=== PATIENT | female | born 1980 | race Caucasian/White ===

== ENCOUNTER 2016-04-10 06:55 | Day surgery (SDC) | payer BC ==
--- NOTE | ~2016-04-10 | EGD ---
EGD REPORT [facility] [address] [place] [address] NAME: BONITA ROBERTSON : [birth year] STATUS : REG [facility]#: [id number] AGE: 36 ADM/REG DATE : 04/10/16 MR#: [id number] REPORT SERV DATE: 04/10/16 DICTATED BY: BRENDAN BUTTERFIELD DATE: 04/10/16 REPORT STATUS : Draft TRANSCRIBED BY: [facility] DATE: 04/10/16 Endoscopy Center Patient Name: Bonita Robertson Date of : 1980 Attending MD: BRENDAN BUTTERFIELD MD Procedure Date No Time: 04/10/2016 Procedure: Upper GI endoscopy Indications: Heartburn, Suspected esophageal reflux, Nausea Referring MD: DAMIAN VÁZQUEZ Medicines: as per anesthesia Complications: No immediate complications. Procedure: Pre-Anesthesia Assessment: - ASA Grade Assessment: II - A patient with mild systemic disease. After obtaining informed consent, the endoscope was passed under direct vision. Throughout the procedure, the patient's blood pressure, pulse, and oxygen saturations were monitored continuously. The GIF H190 [id number] was introduced through the mouth, and advanced to the third part of duodenum. The upper GI endoscopy was accomplished without difficulty. The patient tolerated the procedure well. Findings: The examined esophagus was normal. A few sessile polyps were found in the gastric body. Biopsies were taken with a cold forceps for histology. The cardia and gastric fundus were normal on retroflexion. The examined duodenum was normal. Impression: - Normal esophagus. - A few gastric polyps. Biopsied. - Normal examined duodenum. Recommendation: - Await pathology results. - Follow an antireflux regimen. - Continue present medications. Procedure Code(s): --- Professional --- 16386, Esophagogastroduodenoscopy, flexible, transoral; with biopsy, single or multiple Diagnosis Code(s): --- Professional --- K31.7, Polyp of stomach and duodenum R12, Heartburn EGD REPORT [facility] [address] [place] [address]. [id number] NAME: BONITA ROBERTSON : [birth year] STATUS : REG [facility] [place] PAT#: [id number] AGE: 36 ADM/REG DATE : 04/10/16 MR#: [id number] REPORT SERV DATE: 04/10/16 DICTATED BY: BRENDAN BUTTERFIELD. DATE: 04/10/16 REPORT STATUS : Draft TRANSCRIBED BY: [id number] DATE: 04/10/16 R11.0, Nausea CPT copyright 2013 [employer]. All rights reserved. The codes documented in this report are preliminary and upon enrollment advisor review may be revised to meet current compliance requirements. BRENDAN BUTTERFIELD MD 04/10/2016 9:03 AM This report has been signed electronically. Number of Addenda: 0 Note Initiated On: 04/10/2016 8:44 AM Scope Withdrawal Time 0 hours 0 minutes 0 seconds [address] [place] [address]
--- NOTE | ~2016-04-10 | EGD ---
EGD REPORT [facility] [address] [place] [address] NAME: BONITA ROBERTSON : [birth year] STATUS : REG [facility]#: [id number] AGE: 36 ADM/REG DATE : 04/10/16 MR#: [id number] REPORT SERV DATE: 04/10/16 DICTATED BY: BRENDAN BUTTERFIELD DATE: 04/10/16 REPORT STATUS : Draft TRANSCRIBED BY: [employer] DATE: 04/10/16 Endoscopy Center Patient Name: Bonita Robertson Date of : 1980 Attending MD: BRENDAN BUTTERFIELD MD Procedure Date No Time: 04/10/2016 Procedure: Colonoscopy Indications: Personal history of ulcerative colitis Referring MD: DAMIAN VÁZQUEZ Medicines: as per anesthesia Complications: No immediate complications. Procedure: Pre-Anesthesia Assessment: - ASA Grade Assessment: II - A patient with mild systemic disease. After I obtained informed consent, the scope was passed under direct vision. Throughout the procedure, the patient's blood pressure, pulse, and oxygen saturations were monitored continuously. The PCF [id number] was introduced through the anus and advanced to the cecum, identified by appendiceal orifice and ileocecal valve. The colonoscopy was performed without difficulty. The patient tolerated the procedure well. The quality of the bowel preparation was adequate to identify polyps. Findings: The perianal and digital rectal examinations were normal. no active colitis Four biopsies were obtained in the rectum, in the sigmoid colon, in the descending colon, in the proximal transverse colon, in the distal transverse colon, in the ascending colon and in the cecum with cold forceps for histology. Impression: - Four biopsies were obtained in the rectum, in the sigmoid colon, in the descending colon, in the proximal transverse colon, in the distal transverse colon, in the ascending colon and in the cecum. Recommendation: - Await pathology results. - Repeat colonoscopy for surveillance based on pathology results. Procedure Code(s): --- Professional --- 05570, Colonoscopy, flexible, proximal to splenic flexure; with biopsy, single or multiple EGD REPORT [facility] [address] [place] [address] NAME: BONITA ROBERTSON : [birth year] STATUS : REG [facility]#: [id number] AGE: 36 ADM/REG DATE : 04/10/16 MR#: [id number] REPORT SERV DATE: 04/10/16 DICTATED BY: BRENDAN BUTTERFIELD. DATE: 04/10/16 REPORT STATUS : Draft TRANSCRIBED BY: [employer] DATE: 04/10/16 Diagnosis Code(s): --- Professional --- Z87.19, Personal history of other diseases of the digestive system CPT copyright 2013 [employer]. All rights reserved. The codes documented in this report are preliminary and upon tool distributor review may be revised to meet current compliance requirements. BRENDAN BUTTERFIELD MD 04/10/2016 9:29 AM This report has been signed electronically. Number of Addenda: 0 Note Initiated On: 04/10/2016 8:42 AM Scope Withdrawal Time 0 hours 13 minutes 2 seconds [id number] [place] [id number]
[~2016-04-10 06:55] MED LIST: ADVIL PO; NEXIUM40 PO
== END 2016-04-10 23:59 | disposition home or self-care (01) ==
LOC: DMU 06:55
PROVIDERS: Internal Medicine Gastroenterology
PROC: 0DBH8ZX Excision of Cecum, Via Natural or Artificial Opening Endoscopic, Diagnostic (ICD-10-PCS; 2016-04-10)
PROC: 0DBK8ZX Excision of Ascending Colon, Via Natural or Artificial Opening Endoscopic, Diagnostic (ICD-10-PCS; 2016-04-10)
PROC: 0DBL8ZX Excision of Transverse Colon, Via Natural or Artificial Opening Endoscopic, Diagnostic (ICD-10-PCS; 2016-04-10)
PROC: 0DBM8ZX Excision of Descending Colon, Via Natural or Artificial Opening Endoscopic, Diagnostic (ICD-10-PCS; 2016-04-10)
PROC: 0DBN8ZX Excision of Sigmoid Colon, Via Natural or Artificial Opening Endoscopic, Diagnostic (ICD-10-PCS; 2016-04-10)
PROC: 0DB68ZX Excision of Stomach, Via Natural or Artificial Opening Endoscopic, Diagnostic (ICD-10-PCS; principal; 2016-04-10 08:00)
PROC: 0DBP8ZX Excision of Rectum, Via Natural or Artificial Opening Endoscopic, Diagnostic (ICD-10-PCS; 2016-04-10 08:00)
DX: K31.7 Polyp of stomach and duodenum (principal); Z87.19 Personal history of other diseases of the digestive system; K21.9 Gastro-esophageal reflux disease without esophagitis; G43.909 Migraine, unspecified, not intractable, without status migrainosus; Z98.51 Tubal ligation status; Z79.899 Other long term (current) drug therapy; Z98.890 Other specified postprocedural states; Z87.442 Personal history of urinary calculi
CPT/HCPCS: 84703; 88305